=== PATIENT | female | born 2005 | race Caucasian/White ===

== ENCOUNTER 2025-02-06 19:04 | Emergency (ER) | payer OTHER, SELFPAY ==
[2025-02-06 19:05] VITALS: BP 134/102; PULSE 102; RESP 18; TEMP 36.9; O2SAT 100; BMI 28.3
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
[2025-02-06 19:48] VITALS: BP 146/78; PULSE 108; O2SAT 100
[2025-02-06] MEDS: lidocaine 1% 10 ML INJ SUBCUT (20:22)
[2025-02-06 20:52] VITALS: BP 118/85; PULSE 92; RESP 20; O2SAT 99
== END 2025-02-06 20:54 | disposition home or self-care (01) ==
PROVIDERS: Emergency Provider Emergency Medicine
DX: S81.011A Laceration without foreign body, right knee, initial encounter (principal); V89.2XXA Person injured in unspecified motor-vehicle accident, traffic, initial encounter
CPT/HCPCS: 12002; 73562; 99283; J9999